=== PATIENT | male | born 1960 | race Caucasian/White ===

== ENCOUNTER 2017-10-11 14:35 | Emergency (ER) | payer OTHER ==
[~2017-10-11] VITALS: Ht 170.2 cm; Wt 86.2 kg
--- NOTE | 2017-10-11 14:53 | ED GENERAL ADULT ---
History of Present Illness General Chief Complaint: General Adult Stated Complaint: AMS X 2 WEEKS,WEAKNESS Source: patient, family Exam Limitations: no limitations Vital Signs & Intake/Output Vital Signs & Intake/Output Vital Signs Date Time Temp Pulse Resp B/P B/P Pulse O2 O2 Flow FiO2 Mean Ox Delivery Rate 10/11 1442 97.8 81 20 144/89 93 Room Air Allergies Coded Allergies: bee pollen (ANAPHYLAXIS ) Reconcile Medications No Known Home Medications Triage Note: PT TO ED WITH SON AND SISTER FOR C/O WEAKNESS, CONFUSION X 2 WEEKS. SON STATES HE SAW FATHER LAST NIGHT AND NOTICED A FACIAL DROOP. SISTER STATES PT WAS "REALLY SICK" A FEW WEEKS AGO. PT ARRIVES TO ED A/OX3. Triage Nurses Notes Reviewed? yes Onset: Gradual Duration: week(s): Timing: recent history HPI: 10/11/17 2:45 PM 57-year-old male presents to the emergency department by family for increasing confusion over the past 3 weeks. They say that he's had intermittent episodes of being confused, seems to be getting worse. Early this morning at 12:45 AM he tried to get up to go to work, he actually did go to work and was not allowed to go in because he was not acting right. Before he left for work the family says that he had left sided facial weakness. Now in the ED is awake alert and oriented 3. He does have mild left facial weakness. No weakness to hip flexion and applications packager strength. He is oriented 3. (Juan Carlos Vargas DO) Past History Travel History Traveled to [place] past 21 day No Medical History Any Pertinent Medical History? see below for history Cardiovascular: hypertension Surgical History Surgical History: non-contributory Psychosocial History What is your primary language Welsh Tobacco Use: Never used ETOH Use: denies use Illicit Drug Use: denies illicit drug use Family History Hx Contributory? No (Juan Carlos Vargas DO) Review of Systems Review of Systems Constitutional: Denies: fever. EENTM: Denies: visual changes. Respiratory: Denies: short of breath. Cardiovascular: Denies: chest pain. GI: Denies: abdominal pain. Genitourinary: Reports: no symptoms. Musculoskeletal: Reports: no symptoms. Skin: Reports: no symptoms. Neurological/Psychological: Reports: confusion. Hematologic/Endocrine: Denies: bruising, bleeding. (Juan Carlos Vargas DO) Physical Exam Physical Exam General Appearance: alert, awake, anxious, mild distress Head: atraumatic, left facial weakness Eyes: Bilateral: normal appearance, PERRL, EOMI. Ears, Nose, Throat: normal pharynx, normal ENT inspection Neck: normal inspection, supple, full range of motion Respiratory: normal breath sounds, chest non-tender, no respiratory distress Cardiovascular: regular rate/rhythm Peripheral Pulses: 4+ radial (R), 4+ radial (L) Gastrointestinal: soft, non-tender Back: normal range of motion Extremities: normal inspection, normal range of motion, no edema Neurologic/Psych: awake, alert, oriented x 3, mild left facial weakness otherwise unremarkable Skin: intact, normal color, warm/dry Core Measures ACS in differential dx? No CVA/TIA Diagnosis: Yes NIH Stroke Scale (24 Hours) NIH Stroke Scale (24 Hours) Response Value Level of Consciousness alert 0 LOC Questions answers both correctly 0 LOC Commands obeys both correctly 0 Best Gaze normal 0 Visual Pastor no visual loss 0 Facial Paresis partial 2 Motor Arm - Left no drift 0 Motor Arm - Right no drift 0 Motor Leg - Left no drift 0 Motor Leg - Right no drift 0 Limb Ataxia no ataxia 0 Sensory normal 0 Best Language no aphasia 0 Dysarthria normal articulation 0 Extinction and Inattention no neglect 0 Total 2 Reason tPA not given Medical Contraindication Swallow Evaluation Not Done Sepsis Present: No Sepsis Focused Exam Completed? No (Juan Carlos Vargas DO) Progress Differential Diagnoses I considered the following diagnoses in my evaluation of the patient: [CVA, TIA, intracranial bleed, intracerebral mass, sepsis, Alamo's palsy, Lyme disease, encephalitis, alcohol withdrawal and abuse] Plan of Care: Orders Procedure Date/time Status Add-on Test (ER Only) 10/11 1532 Active CULTURE,URINE 10/11 1509 Active BLOOD CULTURE 10/11 1509 Active URINE DRUGS OF ABUSE 10/11 1509 Complete URINALYSIS 10/11 1509 Complete TROPONIN LEVEL 10/11 1509 Active LYME TITRE 10/11 1509 Active ETHANOL 10/11 1509 Active COMPREHENSIVE METABOLIC PANEL 10/11 1509 Active CBC WITHOUT DIFFERENTIAL 10/11 1509 Complete ANAPLASMA PHAGOCYTOPHILUM DNA 10/11 1509 Active EKG 10/11 1509 Active Laboratory Tests 10/11/17 1619: Lyme Disease Antibody Pending 10/11/17 1619: Sodium Pending, Potassium Pending, Chloride Pending, Carbon Dioxide Pending, Anion Gap Pending, BUN Pending, Creatinine Pending, BUN/Creatinine Ratio Pending , Glucose Pending, Calcium Pending, Total Bilirubin Pending, AST Pending, ALT Pending, Alkaline Phosphatase Pending, Troponin I Pending, Total Protein Pending , Albumin Pending, Globulin Pending, Albumin/Globulin Ratio Pending, CBC w Diff NO MAN DIFF REQ, RBC 4.72, MCV 92.8, MCH 31.7 H, MCHC 34.2, RDW 12.3, MPV 7.6, Gran % 62.9, Lymphocytes % 22.9, Monocytes % 10.7 H, Eosinophils % 3.2, Basophils % 0.3, Absolute Granulocytes 5.9, Absolute Lymphocytes 2.2, Absolute Monocytes 1.0 H, Absolute Eosinophils 0.3, Absolute Basophils 0, A.phagocytophil DNA PCR Pending, Serum Alcohol Pending 10/11/17 1602: Urine Opiates Screen < 100, Methadone Screen 44, Barbiturate Screen < 60, Ur Phencyclidine Scrn < 6.00, Amphetamines Screen < 100, U Benzodiazepines Scrn < 85, Urine Cocaine Screen < 50, Urine Cannabis Screen < 5.00, Urine Color YEL, Urine Clarity CLEAR, Urine pH 7.0, Ur Specific [place] 1.010, Urine Protein NEG, Urine Ketones NEG, Urine Nitrite NEG, Urine Bilirubin NEG, Urine Urobilinogen 2.0 H, Ur Leukocyte Esterase NEG, Ur Microscopic EXAM NOT REQUIRED, Urine Hemoglobin NEG, Urine Glucose NEG Microbiology 10/11 1635 BLOOD: Blood Culture - RECD 10/11 1619 BLOOD: Blood Culture - RECD 10/11 1602 URINE ROUT: Urine Culture - RECD Initial ED EKG: none, PENDING (Juan Carlos Vargas DO) Comments: I assumed care of this patient from Dr. Vargas at the time of shift change while awaiting CT scan. Unfortunately, the CT scan resulted showing a right temporal lobe mass with edema and midline shift. I reevaluated the patient and he remains hemodynamically and neurologically stable. He understands the indications of this diagnosis and agrees to transfer down to [facility] for definitive management. (Vinnie Guerrier DO) Departure Departure Condition: Stable Referrals: Patient Has No Primary Care Dr (PCP/Family) Departure Forms: Customer Survey General Discharge Information Prescriptions: Current Visit Scripts No Known Home Medications Comments The patient was signed out to Dr. Guerrier at 3 PM. Labs were ordered and CT is pending. (Juan Carlos Vargas DO) Departure Time of Disposition: 1706 Disposition: OTHER [facility] (ACUTE) Clinical Impression Primary Impression: Intracranial mass (Vinnie Guerrier DO) Critical Care Note Critical Care Note Critical Care Time: 30-74 min (Juan Carlos Vargas DO)
--- NOTE | 2017-10-11 15:57 | RADIOLOGY REPORT ---
EXAMINATION: XR PORTABLE CHEST CLINICAL INFORMATION: Shortness of breath. COMPARISON: None TECHNIQUE: Portable frontal view of the chest was obtained. 3:20 PM FINDINGS: No significant abnormality is noted involving the heart, lungs, mediastinum, bony thorax or soft tissues. IMPRESSION: Unremarkable examination.
--- NOTE | 2017-10-11 16:27 | CT SCAN REPORT ---
EXAMINATION: CT HEAD WITHOUT CONTRAST CLINICAL INFORMATION: Altered mental status. COMPARISON: None. TECHNIQUE: Contiguous axial images of the brain were obtained without IV contrast. DLP: 620 mGy-cm. FINDINGS: There is an ill-defined area of decreased attenuation within the right temporal lobe with surrounding edema but exerts mass effect with shift of midline structures to the left by approximately 4 mm. There is obliteration to the right lateral ventricle. There is prominence to the left lateral ventricle. There is no demonstrable uncal herniation. There are no pathologic extra-axial fluid collections. The paranasal sinuses are clear. There are no osseous lesions. IMPRESSION: Area of low-attenuation with surrounding edema within the right temporal lobe worrisome for a mass. There is no acute hemorrhage demonstrable. Recommendation is for correlation with a brain MRI with contrast at this time.
[2017-10-11 16:49] LABS: ABSOLUTE BASOPHIL COUNT 0 /CUMM (0.0-0.2); ABSOLUTE EOSINOPHIL COUNT 0.3 /CUMM (0.0-0.7); ABSOLUTE GRANULOCYTE CT 5.9 /CUMM (1.4-6.5); ABSOLUTE LYMPH COUNT 2.2 /CUMM (1.2-3.4); BASOPHIL % 0.3 % (0.0-2.0); EOSINOPHIL % 3.2 % (0-5); GRANULOCYTE % 62.9 % (42.2-75.2); HEMATOCRIT 43.8 % (42-52); MEAN CORPUSCULAR HGB 31.7 PG (27.0-31.0); MEAN CORPUSCULAR HGB CONC 34.2 G/DL (33.0-37.0); MEAN CORPUSCULAR VOLUME 92.8 FL (80.0-94.0); MEAN PLATELET VOLUME 7.6 FL (7.4-10.4); PLATELET COUNT 297 /CUMM (130-400); RBC DISTRIBUTION WIDTH 12.3 % (11.5-14.5); RED BLOOD CELL CT 4.72 /CUMM (4.70-6.10); WHITE BLOOD CELL COUNT 9.4 /CUMM (4.8-10.8)
[2017-10-11 18:09] VITALS: BP 140/78
== END 2017-10-11 18:10 | disposition short-term general hospital (02) ==
LOC: ERH 14:35
PROVIDERS: Emergency Medicine
DX: G93.89 Other specified disorders of brain (principal)
CPT/HCPCS: 86618; 87798; 71045; 80307; 81003; 87040; 87086; 93005; 93010; G0480